=== PATIENT | female | born 1960 | race Caucasian/White ===

== ENCOUNTER 2016-06-17 14:51 | Observation (INO) | payer SELFPAY ==
--- NOTE | ~2016-06-17 | DS ---
Discharge Summary [facility] [address] [place]. [address] NAME: AKIRA ROBERTSON : 56 STATUS : DIS [facility]illan PAT#: [id number] AGE: 56 ADM/REG DATE : 06/17/16 MR#: [id number] REPORT SERV DATE: 06/19/16 DICTATED BY: DATE: REPORT STATUS : Draft TRANSCRIBED BY: MODL DATE: 06/18/16 ADMISSION DATE: 06/17/2016 DISCHARGE DATE: 06/18/2016 [facility] CONSULTANTS: None. DISCHARGE DIAGNOSES: 1. Urinary tract infection-culture pending at the time of discharge. Placed on empiric Levaquin at discharge, for outpatient followup. 2. Chronic obstructive pulmonary disease-with hypoxemia, necessitating initiation of oxygen therapy this admission. No evidence of acute chronic obstructive pulmonary disease exacerbation. 3. Nausea and vomiting due to urinary tract infection-resolved. 4. Generalized weakness due to urinary tract infection-resolved. 5. Hypertension-controlled. 6. Hyperlipidemia-on a statin. IMAGING: Portable chest x-ray 06/17/2016, shows COPD with no acute process or infiltrate. CT abdomen and pelvis without contrast, 06/17/2016, diffusely edematous colonic wall. No liquid stool or pericolonic mesenteric stranding to suggest colitis. PERTINENT LABS: Chloride 93, creatinine 0.5 otherwise basic metabolic panel normal. Albumin 3.4, AST 45, lipase 154. CBC with white blood cell count 5, hemoglobin 15.9, hematocrit 48.2, platelets 158. Urinalysis large amount of leukocyte esterase with 93 white blood cells and rare bacteria. One squamous epithelial cell. Troponin 0.05. Blood gas pH 7.37, PCO2 43, PO2 61, oxygen saturation 89% on room air. BRIEF HISTORY: For full details please see the previously dictated history of present illness by Dr. Tomás Pan. This is a 56-year-old white female, who presented to the emergency department with complaints of nausea and vomiting. She suspected she had contracted a viral GI bug early last week, as she had a near continuous nausea and vomiting and inability to keep down any foods or fluids. She did have some diarrhea initially, but then this resolved. She was becoming progressively weak, unable to get around her house and perform activities of daily living as she had been unable to keep down food or fluids for approximately 6 days by her report. In the emergency department, she was found to be dehydrated, with ketones in the urine, and was also found to have a urinary tract infection. She denied any dysuria or odor frequency or other symptoms, but there was evidence of 93 white blood cells in the urine. There was also concern for possible COPD exacerbation as the patient was found to be mildly hypoxemic on room air. She was admitted to the Hospitalist Service for management. HOSPITAL COURSE: The patient was placed on empiric Rocephin. She was also given high-dose steroids, despite no wheezing on examination in the ER or subsequently. She was continued Discharge Summary [address] [place]. [address] NAME: AKIRA ROBERTSON : 56 STATUS : DIS Dillan PAT#: [id number] AGE: 56 ADM/REG DATE : 06/17/16 MR#: [id number] REPORT SERV DATE: 06/19/16 DICTATED BY: DATE: REPORT STATUS : Draft TRANSCRIBED BY: MODJessica DATE: 06/18/16 on her home breathing treatments. When I re-evaluated her on the morning of 06/18/2016, she reported marked improvement, with tolerance of a liquid diet and desire to advance to more solid food. She was changed to a regular diet for lunch time and did well with this with no recurrence of nausea or vomiting. She also reported improvement in weakness and was ambulated independently throughout the unit prior to discharge. She did, however, demonstrate some ongoing hypoxemia with oxygen saturations of 85% at rest, necessitating initiation of supplemental oxygen therapy this admission, and for discharge. As she did not have any evidence of active wheezing, rhonchi, or crackles on examination and did not have any evidence of infiltrate on chest x-ray, suspect that this may reflect some progression of her underlying COPD, and she may in fact require oxygen on a more permanent basis. She is instructed to use oxygen 2 L continuously until seen by her primary care provider for re-evaluation. She is placed on 10 days of Levaquin 750 mg p.o. daily, and her PCP will need to follow up within 7 to 10 days for repeat urinalysis and to follow up results of urine culture obtained here. The patient does not have a history of frequent urinary tract infections nor frequent antibiotic usage to suggest that empiric treatment would not be effective. DISCHARGE DISPOSITION: The patient was discharged to home in the care of family with no specific activity or dietary restrictions. She needs to arrange follow up with her primary care provider at [facility], Shelia Moore, within the next 10 days to be re-evaluated for resolution of urinary tract infection and to have her oxygen requirements re-evaluated as well. DISCHARGE MEDICATIONS: Include: 1. Aspirin 81 mg p.o. daily. 2. Lipitor 40 mg p.o. at bedtime. 3. Lisinopril 40 mg p.o. daily. 4. Lopressor 25 mg p.o. b.i.d. 5. Advair 100/50, 1 puff inhaled twice a day or Symbicort 160/4.5, 2 puffs inhaled twice a day-the patient has both inhalers at home and is instructed to use either, but not both. 6. Albuterol nebs q.4 hours as needed. 7. Combivent MDI q.4 hours as needed. 8. Spiriva one cap inhaled at bedtime. 9. Levaquin 750 mg p.o. daily for 10 days. Ten tablets dispensed with no refills. 25 minutes was spent in completion of the discharge. SAMMI/FREDY Josh Morgan M.D. / [id number] Discharge Summary [address] [address] NAME: AKIRA ROBERTSON : 56 STATUS : DIS Dillan PAT#: [id number] AGE: 56 ADM/REG DATE : 06/17/16 MR#: [id number] REPORT SERV DATE: 06/19/16 DICTATED BY: DATE: REPORT STATUS : Draft TRANSCRIBED BY: FREDY DATE: 06/18/16 CC: James Silva PATRICIA J
--- NOTE | ~2016-06-17 | HP ---
History And Physical [facility] [address] [place]. [address] NAME: AKIRA SHARPE : 56 STATUS : ADM IN [facility]#: [id number] AGE: 56 ADM/REG DATE : 06/17/16 MR#: [id number] REPORT SERV DATE: 06/18/16 DICTATED BY: NIKKI AGEE DATE: 06/17/16 REPORT STATUS : Draft TRANSCRIBED BY: MODJessica DATE: 06/17/16 DATE OF ADMISSION: 06/17/2016 POINT OF ENTRY: [facility]. CHIEF COMPLAINT: Nausea, vomiting, and poor appetite. HISTORY OF PRESENT ILLNESS: Ms. Sharpe is a 56-year-old female with history of COPD, not on any home oxygen, hypertension, anxiety, as well as gastroesophageal reflux disease, who presents to the emergency department today with a five to six-day history of abdominal pain, nausea, vomiting, as well as poor oral intake. The patient states that last she had a coughing episode and shortly after that had some severe nausea as well as emesis that was coffee-ground appearing. Since then, the patient denies any significant nausea, vomiting, and absolutely denies any diarrhea but does state that she has had very poor oral intake over the past 5 days secondary to poor appetite as well as food tasting poorly. She does report some cough and thicker sputum production than her baseline but denies any fevers, worsening of her baseline shortness of breath, or wheezing. Initial evaluation in the emergency room notable for CT of the abdomen and pelvis that was otherwise unremarkable except for some diffusely edematous colonic wall without any evidence of colitis. Chest x-ray was clear without any evidence of infiltrate. She was noted to be mildly hypoxemic on room air which corrected with 2 L by nasal cannula. She did have evidence of a urinary tract infection. She was started on Rocephin and admitted to the Hospitalist Service for further evaluation and management. COMPREHENSIVE REVIEW OF SYSTEMS: Otherwise negative unless listed in history of present illness. PREVIOUS MEDICAL HISTORY: 1. COPD, not on any home oxygen. 2. Hypertension. 3. Anxiety. 4. Gastroesophageal reflux disease. SURGICAL HISTORY: 1. Appendectomy. 2. Abdominal hysterectomy. ALLERGIES: ARE TO PENICILLIN. HOME MEDICATIONS: 1. Albuterol one puff inhalation p.r.n. shortness of breath. 2. Albuterol one dose inhalation p.r.n. 3. Aspirin 81 mg daily. History And Physical [address] [place]. [address] NAME: AKIRA SHARPE : 56 STATUS : ADM IN PAT#: [id number] AGE: 56 ADM/REG DATE : 06/17/16 MR#: [id number] REPORT SERV DATE: 06/18/16 DICTATED BY: NIKKI AGEE DATE: 06/17/16 REPORT STATUS : Draft TRANSCRIBED BY: FREDY DATE: 06/17/16 4. Atorvastatin 40 mg at bedtime. 5. Symbicort two puffs inhalation b.i.d. 6. Advair one puff inhalation b.i.d. 7. Atrovent one nebulization p.r.n. 8. Lisinopril 40 mg daily. 9. Lopressor 25 mg b.i.d. 10.Spiriva one cap inhalation at bedtime. SOCIAL HISTORY: She is a former smoker, quit two months ago. Denies any alcohol. Denies any illicits. FAMILY MEDICAL HISTORY: Mother with COPD. Father with coronary artery disease. Siblings are otherwise healthy. LABS AND IMAGIN. White count 5.0, hemoglobin 15.9, hematocrit is 48.2, and platelet count is 158. 2. Sodium is 135, potassium 3.7, chloride 93, carbon dioxide 27, BUN 12, creatinine 0.54, glucose is 83, calcium is 8.4, protein is 6.8, albumin 3.4, bilirubin is 0.4, ALT is 42, AST 45, alkaline phosphatase is 70. 3. Lipase is 154. 4. Troponin is 0.05. 5. Urinalysis: Specific gravity is 1.018, hazy with positive ketones, large leukocyte esterase, 93 white blood cells per high-powered field with rare bacteria. 6. Chest x-ray per review shows COPD type changes with air space loss and flattened diaphragms but no evidence of any focal consolidation or infiltrate. 7. ABG: PH is 7.37, pCO2 is 43, PO2 is 61, bicarbonate is 24, and saturating 89% on room air. 8. CT of the abdomen and pelvis: Diffusely edematous colonic wall, no liquid stool or pericolonic mesenteric stranding is seen to strongly suggest colitis, although this diagnosis should still be considered. 9. EKG per my review shows normal sinus rhythm with mildly prolonged QT with no evidence of any acute ischemia or infarction. PHYSICAL EXAMINATION: VITAL SIGNS: Temperature is 98.3 degrees Fahrenheit, pulse is 98, respirations 16, saturating 92% on room air, and blood pressure 173/82. On recheck, blood pressure is now 145/87. GENERAL: The patient is awake, alert, in no acute distress. Resting comfortably in bed. She is a well-developed, well-nourished, elderly female. HEENT: Atraumatic and normocephalic. Slightly dry mucous membranes. Pupils are equal, round, reactive to light and accommodation. Extraocular eye movements are intact. No scleral icterus. NECK: No jugular venous distention. No carotid bruits. CARDIAC: Regular rate and rhythm. No murmurs or gallops. Normal S1, S2. LUNGS: Does have some distant breath sounds in all lung brandt as well as prolonged respiratory phase, but I do not appreciate any wheezes at this time and no respiratory distress. History And Physical [address] [address] NAME: AKIRA SHARPE : 56 STATUS : ADM IN [facility]#: [id number] AGE: 56 ADM/REG DATE : 06/17/16 MR#: [id number] REPORT SERV DATE: 06/18/16 DICTATED BY: NIKKI AGEE DATE: 06/17/16 REPORT STATUS : Draft TRANSCRIBED BY: FREDY DATE: 06/17/16 ABDOMEN: Soft, nontender, nondistended. Hypoactive bowel sounds. No rebound, guarding, or rigidity. EXTREMITIES: Warm and perfused. No cyanosis, clubbing, or edema. SKIN: Warm and dry. PSYCH: Affect appropriate. NEURO: Alert and oriented x3. Cranial nerves 2 through 12 grossly intact. Speech is normal. Gait not assessed. ASSESSMENT: Ms. Sharpe is a 56-year-old female, who comes in with anorexia, nausea, and vomiting and found to have evidence of urinary tract infection as well as concern for acute chronic obstructive pulmonary disease exacerbation. PROBLEM LIST: 1. Acute COPD exacerbation. 2. Hypoxemia. 3. Urinary tract infection. 4. Dehydration. 5. Hypertension. PLAN: 1. Acute COPD exacerbation. After receiving breathing treatments and steroids here in the emergency department, her wheezing has improved substantially, but we will still place her on some IV Solu-Medrol as well as Rocephin for the UTI as well as frequent bronchodilators. 2. Urinary tract infection. Follow up urine cultures. Provide IV Rocephin. 3. Dehydration. Provide IV fluids for her poor oral intake for the past 5-6 days. 4. Hypertension. Continue patient's home medications. Provide IV hydralazine p.r.n. 5. Nausea and vomiting. The patient does have a clear etiology for patient's nausea and vomiting based on labs or on CT imaging. We will provide supportive care with antiemetics. Start her on a clear liquid diet, advance as tolerated. Given reports of coffee-ground appearing emesis about 6 days ago, we will place the patient empirically on some Protonix. She denies any further evidence of active bleeding at this time, and her hemoglobin and hematocrit are within normal limits to slightly elevated. 6. DVT prophylaxis. Lovenox subcu. CODE STATUS: The patient wished to be full code. GEORGI/KATHLEENL Nikki Agee MD / [id number] CC: History And Physical [address] [address] NAME: AKIRA SHARPE : 56 STATUS : ADM IN [facility]#: [id number] AGE: 56 ADM/REG DATE : 06/17/16 MR#: [id number] REPORT SERV DATE: 06/18/16 DICTATED BY: NIKKI AGEE DATE: 06/17/16 REPORT STATUS : Draft TRANSCRIBED BY: FREDY DATE: 06/17/16 James Crisostomo
[2016-06-17 11:46] LABS: BASOPHILS 5.5 %; BASOPHILS ABSOLUTE 0.27 10/3/uL (0.0-0.16); EOSINOPHILS 0.2 %; EOSINOPHILS ABSOLUTE 0.01 10/3/uL (0.0-0.53); HEMOGLOBIN 15.9 g/dL (12.0-16.0); IMMATURE GRANULOCYTES 0.4 %; LYMPHOCYTES 33.5 %; LYMPHOCYTES ABSOLUTE 1.66 10/3/uL (0.67-4.30); MEAN CORPUSCULAR HEMOGLOB 29.3 pg (26.0-34.0); MEAN PLATELET VOLUME 11.2 fL (9.2-13.0); MONOCYTES 18.4 %; MONOCYTES ABSOLUTE 0.91 10/3/uL (0.21-1.20); NEUTROPHILS ABSOLUTE 2.08 10/3/uL (2.02-8.40); RBC DISTRIBUTION WIDTH 12.6 % (12.0-16.0); RED CELL COUNT 5.43 10/6/uL (4.0-5.6)
[2016-06-17 11:47] LABS: ER CBC TAT 0 Hrs 05 Mins; HEMATOCRIT 48.2 % (36.0-48.0); IMMATURE GRANULOCYTES ABSOLUTE 0.02 10/3/uL (0.0-0.11); MANUAL DIFF NO %; MEAN CORPUSCULAR VOLUME 88.8 fL (80-100); PLATELET COUNT 158 10/3/uL (150-400)
[2016-06-17 12:03] LABS: ALBUMIN 3.4 G/DL (3.5-5.0); ALKALINE PHOSPHATASE 70 U/L (45-117); CALCIUM, SERUM 8.4 MG/DL (8.5-10.4); CO2 (CARBON DIOXIDE) 27 MMOL/L (24-34); CREATININE 0.54 MG/DL (0.55-1.02); GFR AFRICAN AMERICAN 121 ML/MIN (>=60); GFR NON AFRICAN AMERICAN 104 ML/MIN (>=60); GLOBULIN 3.4 G/DL (2.5-4.1); GLUCOSE, SERUM 83 MG/DL (60-99); SGPT(ALT) 42 U/L (5-65); SODIUM, SERUM 135 MMOL/L (135-148); TOTAL PROTEIN 6.8 G/DL (6.0-8.5)
[2016-06-17 12:06] LABS: BUN (BLOOD UREA NITROGEN) 12 MG/DL (6-23); CHLORIDE, SERUM 93 MMOL/L (96-112); TOTAL BILIRUBIN 0.4 MG/DL (0-1.2)
[2016-06-17 12:07] LABS: POTASSIUM, SERUM 3.7 MMOL/L (3.5-5.3); SGOT(AST) 45 U/L (5-40)
[2016-06-17 12:12] LABS: ER DIFF TAT 0 Hrs 30 Mins; LYMPHOCYTES 43 %; LYMPHOCYTES ABSOLUTE (CALC) 2.15 10/3/uL (0.67-4.30); MONOCYTES 9 %; MONOCYTES ABSOLUTE (CALC) 0.45 10/3/uL (0.21-1.20); PLATELET ESTIMATE ADQ (ADEQUATE); SEGMENTED NEUTROPHIL (0) 48 %; TOTAL NUCLEATED CELLS 100
[2016-06-17 12:13] LABS: RBC MORPHOLOGY NORM (NORMAL); REACTIVE LYMPHS OCC (0-2%) (0-5%)
[~2016-06-17 14:51] MED LIST: ADVAIR100 INH; ASAB PO; ATROVENTUD INH; COMBIVENT RESPIM4 GM INH; COZ50 PO; LIPITOR40 PO; LOP25 PO; MONODOX100 MG PO; P20 PO; PRILO PO; PROVENTSOL INH; SPIRIVA INH; SYMBICORT 160/41 INH INH; VENTOLIN HFA INH; VICKS NYQUI1 PO; VISINE0.05 % OPH; VITAMIN B PO; ZESTRIL40 MG PO
[2016-06-17 15:23] LABS: ASCORBIC ACID (UR NOT ORDER) NEG (NEG); BILIRUBIN, URINE NEGATIVE (NEG); ER URINALYSIS TAT 0 Hrs 09 Mins; KETONE, URINE 80 MG/DL (NEG); LEUKOCYTE ESTERASE(NOT OR LARGE (NEG); NITRITE (URINE) NEG (NEG); WBC (NOT ORDERED) (RFLEX) 93 (0-5)
[2016-06-17 16:35] LABS: ALLENS TEST Pos; BE (BASE EXCESS) -1.2 MEQ/L (0 +/- 2.5); HCO3 (ACTUAL BICARBONATE) 24.2 MEQ/L (23-27); HEMOBLOGIN CONTENT 15.1 G/DL (12-16); INSTRUMENT SERIAL # 8087; METHEMOGLOBIN 0.3 % (0-3); O2 CONTENT 18.7 VOL% (18-24); PCO2 (CO2 TENSION) 43 MMHG (35-45); PO2 (O2 TENSION) 61 MMHG (79-93); SAMPLE Arterial; pH 7.37 (7.37-7.43)
[2016-06-17] MEDS ORDERED: SPIRIVA INH (17:58)
[2016-06-17] MEDS ORDERED: ADVAIR100 INH (17:58)
[2016-06-17] MEDS ORDERED: LOP25 PO (18:00)
[2016-06-17] MEDS ORDERED: SYMBICORT 160/41 INH INH (18:00)
[2016-06-17] MEDS ORDERED: ZESTRIL40 MG PO (18:00)
[2016-06-17] MEDS ORDERED: LIPITOR40 PO (18:00)
[2016-06-17] MEDS ORDERED: HALF81 PO (18:01)
[2016-06-17] MEDS ORDERED: ATROVENTUD INH (18:01)
[2016-06-17] MEDS ORDERED: ALBUTEROL0.083 % INH (18:01)
[2016-06-17] MEDS ORDERED: PROVHFA INH (18:02)
[2016-06-18 04:18] LABS: BASOPHILS ABSOLUTE 0.04 10/3/uL (0.0-0.16); EOSINOPHILS 0.2 %; EOSINOPHILS ABSOLUTE 0.01 10/3/uL (0.0-0.53); HEMOGLOBIN 13.9 g/dL (12.0-16.0); IMMATURE GRANULOCYTES 0.2 %; IMMATURE GRANULOCYTES ABSOLUTE 0.01 10/3/uL (0.0-0.11); MEAN CORPUS HGB CONC 33.1 g/dL (32.0-36.0); MEAN CORPUSCULAR HEMOGLOB 30.2 pg (26.0-34.0); MEAN CORPUSCULAR VOLUME 91.3 fL (80-100); MEAN PLATELET VOLUME 11.2 fL (9.2-13.0); MONOCYTES 15.1 %; MONOCYTES ABSOLUTE 0.62 10/3/uL (0.21-1.20); NEUTROPHILS 44.5 %; NEUTROPHILS ABSOLUTE 1.82 10/3/uL (2.02-8.40); PLATELET COUNT 165 10/3/uL (150-400); RBC DISTRIBUTION WIDTH 12.4 % (12.0-16.0); WHITE BLOOD CELLS 4.1 10/3/uL (4.5-10.5)
[2016-06-18 04:20] LABS: MANUAL DIFF NO %
[2016-06-18 04:32] LABS: CHLORIDE, SERUM 100 MMOL/L (96-112); CO2 (CARBON DIOXIDE) 31 MMOL/L (24-34); GFR AFRICAN AMERICAN 124 ML/MIN (>=60); GFR NON AFRICAN AMERICAN 107 ML/MIN (>=60); GLUCOSE, SERUM 83 MG/DL (60-99); POTASSIUM, SERUM 3.9 MMOL/L (3.5-5.3)
[2016-06-18 04:33] LABS: BUN (BLOOD UREA NITROGEN) 7 MG/DL (6-23); SODIUM, SERUM 142 MMOL/L (135-148)
[2016-06-18] MEDS ORDERED: LEVAQUIN750 MG PO (17:11)
== END 2016-06-18 18:03 | disposition home or self-care (01) ==
LOC: ER 14:51 → 5NO 21:32
PROVIDERS: Hospitalist; Internal Medicine; Nurse Practitioner
DX: N39.0 Urinary tract infection, site not specified (principal); J44.9 Chronic obstructive pulmonary disease, unspecified; I10 Essential (primary) hypertension; E78.5 Hyperlipidemia, unspecified; E86.0 Dehydration; F41.9 Anxiety disorder, unspecified; K21.9 Gastro-esophageal reflux disease without esophagitis; Z88.0 Allergy status to penicillin; Z79.82 Long term (current) use of aspirin; Z79.899 Other long term (current) drug therapy; Z87.891 Personal history of nicotine dependence; Z83.6 Family history of other diseases of the respiratory system; Z82.49 Family history of ischemic heart disease and other diseases of the circulatory system; Z90.710 Acquired absence of both cervix and uterus; Z90.49 Acquired absence of other specified parts of digestive tract; Z90.89 Acquired absence of other organs
CPT/HCPCS: 36600; 71010; 74176; 80048; 80053; 81001; 82805; 83690; 84484; 85025; 87086; 93005; 94640; 96361; 96372; 96374; 96375; 99285; A9270-GY; C9113; G0378; J2405; J2930

== ENCOUNTER 2016-06-21 19:54 | Emergency (ER) | payer SELFPAY ==
--- NOTE | ~2016-06-21 | EHP ---
ER History and Physical [facility] [address] [place]. [address] NAME: AKIRA SHARPE : 56 STATUS : [facility] PAT#: [id number] AGE: 56 ADM/REG DATE : 06/21/16 MR#: [id number] REPORT SERV DATE: 06/22/16 DICTATED BY: ESME ZAMAN DATE: 06/21/16 REPORT STATUS : Draft TRANSCRIBED BY: FREDY DATE: 06/21/16 ADDENDUM: Ms. Sharpe is an unfortunate 56-year-old female, who has end-stage COPD. She was just discharged from the hospital on 06/19/2016 after an admission for UTI for which she is still on Levaquin as well as COPD, which came in as non-oxygen dependent and left as oxygen dependent. She has continued with difficulty with her breathing, and the main reason that came in is because she has had nausea and vomiting. She is able to tolerate liquids, but every time she has anything solid, she throws it up and it has gotten to now where she does not even have an appetite. She has become progressively weak and they are very concerned. After a thorough evaluation here in the emergency room, I was unable to find any new findings on her other than a slightly low sodium and potassium, which I have replaced with fluids. The senior case manager had a long discussion with the family as did I regarding the need for longer-term care. The patient is uninsured and is going to have a difficult time getting in to any facility. She also would not qualify at this point for Home Health; however, she does qualify for hospice per the senior case manager, so I have put a referral out to hospice. She has remained stable here in the emergency room. There is a large component of anxiety understandably given her inability to breathe, and she was given Ativan; I am going to prescribe her that for home. Should she have any acute worsening, she will return to the emergency room. Otherwise, [facility] has been consulted, and they will follow up with her for an outpatient referral. She has been encouraged as previously stated to return for any worsening. CMR/MODL Esme Zaman M.D. / [id number] CC: MAU SUAREZ
[2016-06-21 16:13] LABS: BASOPHILS 0.1 %; BASOPHILS ABSOLUTE 0.01 10/3/uL (0.0-0.16); EOSINOPHILS 0.3 %; EOSINOPHILS ABSOLUTE 0.02 10/3/uL (0.0-0.53); HEMATOCRIT 42.3 % (36.0-48.0); IMMATURE GRANULOCYTES 0.6 %; IMMATURE GRANULOCYTES ABSOLUTE 0.04 10/3/uL (0.0-0.11); LYMPHOCYTES 19.9 %; LYMPHOCYTES ABSOLUTE 1.34 10/3/uL (0.67-4.30); MANUAL DIFF NO %; MEAN CORPUS HGB CONC 35.5 g/dL (32.0-36.0); MEAN CORPUSCULAR HEMOGLOB 30.5 pg (26.0-34.0); MEAN PLATELET VOLUME 10.2 fL (9.2-13.0); MONOCYTES 12.7 %; MONOCYTES ABSOLUTE 0.86 10/3/uL (0.21-1.20); NEUTROPHILS 66.4 %; NEUTROPHILS ABSOLUTE 4.48 10/3/uL (2.02-8.40); PLATELET COUNT 321 10/3/uL (150-400); RBC DISTRIBUTION WIDTH 11.7 % (12.0-16.0); RED CELL COUNT 4.92 10/6/uL (4.0-5.6); WHITE BLOOD CELLS 6.8 10/3/uL (4.5-10.5)
[2016-06-21 16:46] LABS: A/G RATIO 1.2 (0.7-1.9); ALBUMIN 3.7 G/DL (3.5-5.0); ALKALINE PHOSPHATASE 73 U/L (45-117); BUN (BLOOD UREA NITROGEN) 4 MG/DL (6-23); CALCIUM, SERUM 8.7 MG/DL (8.5-10.4); CHLORIDE, SERUM 87 MMOL/L (96-112); CO2 (CARBON DIOXIDE) 29 MMOL/L (24-34); CREATININE 0.42 MG/DL (0.55-1.02); GFR AFRICAN AMERICAN 131 ML/MIN (>=60); GFR NON AFRICAN AMERICAN 113 ML/MIN (>=60); GLOBULIN 3.1 G/DL (2.5-4.1); GLUCOSE, SERUM 104 MG/DL (60-99); POTASSIUM, SERUM 3.2 MMOL/L (3.5-5.3); SGOT(AST) 19 U/L (5-40); SGPT(ALT) 36 U/L (5-65); SODIUM, SERUM 128 MMOL/L (135-148); TOTAL BILIRUBIN 0.7 MG/DL (0-1.2); TOTAL PROTEIN 6.8 G/DL (6.0-8.5)
[~2016-06-21 19:54] MED LIST changes: +ALBUTEROL0.083 % INH; +HALF81 PO; +LEVAQUIN750 MG PO; +PROVHFA INH
[2016-06-21 20:16] LABS: BE (BASE EXCESS) 5.8 MEQ/L (0 +/- 2.5); CARBOXYHEMOGLOBIN 1.5 % (0-3); DEVICE NC; HCO3 (ACTUAL BICARBONATE) 30.8 MEQ/L (23-27); INSTRUMENT SERIAL # 8087; METHEMOGLOBIN 0.2 % (0-3); PCO2 (CO2 TENSION) 46 MMHG (35-45); PO2 (O2 TENSION) 80 MMHG (79-93); SAMPLE Arterial; pH 7.45 (7.37-7.43)
[2016-06-21] MEDS ORDERED: ZOFRAN4 PO (21:05)
[2016-06-21] MEDS ORDERED: TESS PO (21:05)
[2016-06-21] MEDS ORDERED: FLORASTOR250 MG PO (21:06)
[2016-06-21 21:25] LABS: TROPONIN I 0.05 NG/ML (<0.05)
[2016-06-21 21:55] LABS: ASCORBIC ACID (UR NOT ORDER) NEG (NEG); BILIRUBIN, URINE NEGATIVE (NEG); ER URINALYSIS TAT 0 Hrs 23 Mins; KETONE, URINE 20 MG/DL (NEG); LEUKOCYTE ESTERASE(NOT OR NEG (NEG); NITRITE (URINE) NEG (NEG); WBC (NOT ORDERED) (RFLEX) 2 (0-5)
== END 2016-06-22 00:31 | disposition home or self-care (01) ==
LOC: ER 19:54
PROVIDERS: Hospitalist; Specialist
DX: J44.9 Chronic obstructive pulmonary disease, unspecified (principal); F41.9 Anxiety disorder, unspecified; R79.89 Other specified abnormal findings of blood chemistry; R62.7 Adult failure to thrive; I10 Essential (primary) hypertension; K21.9 Gastro-esophageal reflux disease without esophagitis; Z87.891 Personal history of nicotine dependence; Z90.710 Acquired absence of both cervix and uterus; Z88.0 Allergy status to penicillin; Z79.82 Long term (current) use of aspirin; Z79.899 Other long term (current) drug therapy
CPT/HCPCS: 36600; 71020; 80053; 81001; 82805; 84484; 85025; 87040; 93005; 94640; 96374; 99284; J0360; J2930